=== PATIENT | female | born 1965 | race Caucasian/White ===

== ENCOUNTER 2017-04-30 10:28 | Observation (INO) | payer BC ==
[~2017-04-30] VITALS: Ht 162.6 cm; Wt 63.5 kg
[2017-04-30] VITALS (21 sets, daily range): BP systolic 97–117; BP diastolic 55–79; PULSE 60–69; RESP 11–21; Ht 162.6 cm; Wt 63.5 kg
[~2017-04-30 10:28] MED LIST: HYDR200T5 PO; NAPR-688 PO; OMEP40CA6 PO; RANI150T9 PO
[2017-04-30] MEDS ORDERED: FAMO40TA52 PO (10:58)
[2017-04-30] MEDS ORDERED: MEPERIDINE 100 MG INJ ONE (12:47)
[2017-04-30] MEDS ORDERED: CIPROFLOXACIN 400MG/D5W 200 ML IVPB ONE (13:00)
[2017-04-30] MEDS ORDERED: metroNIDAZOLE 500 MG/NS (PMX) 100 ML IVPB ONE ×2 (13:00→14:01)
[2017-04-30] MEDS ORDERED: SOD CHLORIDE 0.9% 1,000 ML IV SCH (13:00)
[2017-04-30] MEDS ORDERED: BUPIVACAINE 0.25% (MPF) 30 ML INJ ONE (13:44)
[2017-04-30] MEDS ORDERED: GLYCOPYRROLATE 0.4 MG INJ ONE ×2 (13:59→15:26)
[2017-04-30] MEDS ORDERED: SUCCINYLCHOLINE CHLORIDE 100 MG/5 ML SYG IV ONE (13:59)
[2017-04-30] MEDS ORDERED: NEOSTIGMINE 3 MG/3 ML SYRINGE ONE (13:59)
[2017-04-30] MEDS ORDERED: PROPOFOL 20 ML ONE (13:59)
[2017-04-30] MEDS ORDERED: ROCURONIUM 50 MG INJ ONE ×2 (13:59→15:25)
[2017-04-30] MEDS ORDERED: LIDOCAINE 2% (SDV) 5 ML INJ ONE (13:59)
[2017-04-30] MEDS ORDERED: MEPERIDINE 25 MG INJ IV PRN (14:00)
[2017-04-30] MEDS ORDERED: EPHEDrine SULFATE 50 MG/5 ML SYG IV PRN (14:00)
[2017-04-30] MEDS ORDERED: FENTAnyl 50 MCG/ML VIAL IV PRN ×2 (14:00)
[2017-04-30] MEDS ORDERED: MIDAZOLAM 1 MG/ML 2 ML INJ IV PRN (14:00)
[2017-04-30] MEDS ORDERED: METOCLOPRAMIDE 10 MG INJ IV PRN (14:00)
[2017-04-30] MEDS ORDERED: OXYCODONE/ACETAMINOPHEN (5/325) TAB PO PRN ×2 (14:00)
[2017-04-30] MEDS ORDERED: DIPHENHYDRAMINE 50 MG INJ IV PRN (14:00)
[2017-04-30] MEDS ORDERED: HYDROmorphONE (0.2 MG/ML) 10ML SYG IV PRN ×3 (14:00)
[2017-04-30] MEDS ORDERED: LABETALOL HCL 20MG INJ IV PRN (14:00)
[2017-04-30] MEDS ORDERED: hydrALAzine 20 MG INJ IV PRN (14:00)
[2017-04-30] MEDS ORDERED: ONDANSETRON 4 MG INJ IV PRN (14:00)
[2017-04-30] MEDS ORDERED: CIPROFLOXACIN 400MG/D5W 200 ML ONE (14:01)
[2017-04-30] MEDS ORDERED: METOCLOPRAMIDE 10 MG INJ ONE (15:26)
[2017-04-30] MEDS ORDERED: ONDANSETRON 4 MG INJ ONE (15:26)
[2017-04-30] MEDS ORDERED: SUGAMMADEX SODIUM 200 MG/2 ML VIAL IV ONE (15:28)
--- NOTE | 2017-04-30 15:35 | SIPON ---
Date/Time of Note Date/Time of Note DATE: 04/30/17 TIME: 15:34 Operative Report Preoperative Diagnosis malfunctioning lap band Postoperative Diagnosis same Operation/Procedure Performed 1. laparoscopic removal of lap band 2. abdominal port removal 3. capsulectomy of port capsule Surgeon see signature line research lab assistant none Anesthesia: general Estimated blood loss: 0 - 10 ml's Transfusion Required none Specimen lap band, abdominal port, capsule attached to port Grafts/Implants none Complications none Andreina GALLARDO Apr 30, 2017 15:35
[2017-04-30] MEDS: FENTAnyl 50 MCG/ML VIAL IV PRN ×2 (15:59→16:16)
[2017-04-30] MEDS ORDERED: morphine 2 MG INJ IV PRN (16:00)
[2017-04-30] MEDS ORDERED: HYDROCODONE/APAP (5/325) TAB PO PRN (16:00)
[2017-04-30] MEDS: SOD CHLORIDE 0.9% 1,000 ML IV SCH (18:08)
[2017-04-30 18:20] LABS: BASOPHILS % 0.3 % (0.0-2.0); EOSINOPHILS % 0.1 % (0.0-7.0); HEMATOCRIT 36.4 % (37.0-47.0); HEMOGLOBIN 11.9 g/dl (12.0-16.0); LYMPHOCYTES # 1.6 10^3/ul (0.8-2.9); MEAN CORPUSCULAR HEMOGLOBIN 29.8 pg (29.0-33.0); MEAN CORPUSCULAR HGB CONC 32.7 g/dl (32.0-37.0); MEAN CORPUSCULAR VOLUME 91.2 fl (82.0-101.0); MEAN PLATELET VOLUME 10.8 fl (7.4-10.4); MONOCYTE # 0.7 10^3/ul (0.3-0.9); NEUTROPHIL # 12.2 10^3/ul (1.6-7.5); NEUTROPHILS % 83.1 % (39.0-77.0); PLATELET COUNT 215 10^3/UL (140-415); RED BLOOD COUNT 3.99 10^6/ul (4.20-5.40); RED CELL DISTRIBUTION WIDTH 12.3 % (11.5-14.5); WHITE BLOOD COUNT 14.7 10^3/ul (4.8-10.8)
[2017-04-30 18:42] LABS: ALBUMIN 3.4 g/dl (3.3-4.9); ALBUMIN/GLOBULIN RATIO 1.17; BILIRUBIN,INDIRECT 0.2 mg/dl (0-1.1); BILIRUBIN,TOTAL 0.2 mg/dl (0.2-1.3); CREATININE 0.86 mg/dl (0.44-1.00); POTASSIUM 4.3 mmol/L (3.5-5.1); TOTAL PROTEIN 6.3 g/dl (6.1-8.1)
[2017-04-30] MEDS: CLINDAMYCIN 600 MG/D5W (PMX) 50 ML IVPB SCH (18:49)
[2017-04-30 18:50] LABS: CALCIUM 7.9 mg/dl (8.4-10.2)
[2017-05-01] MEDS: CLINDAMYCIN 600 MG/D5W (PMX) 50 ML IVPB SCH ×3 (00:55→12:11)
[2017-05-01] MEDS: ONDANSETRON 4 MG INJ IV PRN ×3 (01:01→12:57)
[2017-05-01] MEDS: SOD CHLORIDE 0.9% 1,000 ML IV SCH ×2 (01:32→06:00)
[2017-05-01 01:57] VITALS: BP 113/69; RESP 18
--- NOTE | 2017-05-01 02:29 | OPR ---
DATE OF OPERATION: 04/30/2017 INDICATION: This is a 52-year-old female who has a malfunctioning lap band which was placed in an [facility] country. She is having problems with the lap band function and requests surgical removal of the lap band. Risks, alternatives, benefits and personnel were discussed with the patient. Potenti al complications including, but not limited to, bleeding, infection, gastric leak, need for partial gastrectomy and need for reoperation were discussed with the patient. They expressed understanding and consented to the operation. PREOPERATIVE DIAGNOSIS: Malfunctioning lap band. POSTOPERATIVE DIAGNOSIS: Malfunctioning lap band. OPERATION PERFORMED: 1. Laparoscopic band removal. 2. Removal of abdominal ports. 3. Capsulectomy. 4. Therapeutic injection of local anesthesia subcutaneously. 5. Laparoscopic lysis of adhesions. SURGEON: Armando Ryan MD SPECIMEN: Lap band abdominal port capsule. COMPLICATIONS: None. ANESTHESIA: General. ESTIMATED BLOOD LOSS: 15 mL. DESCRIPTION OF PROCEDURE: The patient was taken to the OR and prepped and draped in the usual steri le fashion. Surgical timeout was performed. IV antibiotics were given. Left upper periumbilical t ransverse incision was made with a 15 blade. Using a 12 mm optical trocar, optical entry was perfor med. Pneumoperitoneum was established. Right upper quadrant 5 mm optical trocar was placed under d irect visualization. Left upper quadrant 12 mm optical trocar was placed under direct visualization . Midepigastric 5 mm optical trocar was placed and then removed. Initial inspection showed adhesio ns to the lap band and lap band migration. A snake liver retractor was used through the midepigastr ic port site and the liver was retracted. Laparoscopic lysis of adhesions was performed extensively around the liver and around the port and lap band. The lap band was freely mobilized. Laparoscopi c scissors were used to divide the lap band and the 2 pieces were then retrieved through the port si te. There was good hemostasis of that area. The abdominal wall port was then removed by making a t ransverse incision over the port site. Dissection cautery was carried down to the port. The port a nd the capsule were then resected en bloc. The port, the lap band and all of its components were th en examined and complete excision was performed, and this was also sent to pathology for confirmatio n. The abdominal port was noted to have migrated almost into the abdomen and there was a large defe ct that was created. This was closed with a running 0 looped #1 PDS. The surgical site was hemosta tic. The ports were removed under direct visualization. Skin was closed using skin cori. Thera peutic subcutaneous Marcaine was injected throughout the incision sites. Dictated By: ARMANDO RYAN MD SB/NICOLE Conf#: [id number] DID#: [id number] CC: CAR BEE MD;*EndCC*
--- NOTE | 2017-05-01 04:09 | HP ---
DATE OF ADMISSION: 04/30/2017 HISTORY OF PRESENT ILLNESS: The patient is a 52-year-old female with past medical history positive for lupus, however, patient denies having any current medications that she is taking for that. Lia ent with also a history of GERD and status post lap band surgery, and patient currently was evaluate d for lap band malfunction, and patient was evaluated in surgical consultation by Dr. Ryan and was br ought to the hospital and underwent laparoscopic removal of lap band with abdominal port removal and capsulectomy of port capsule. Postoperatively, the patient experienced moderate pain and patient w ill be admitted for further management. PAST MEDICAL HISTORY: Per HPI. Positive for lupus and gastritis. PAST SURGICAL HISTORY: Patient is status post x2. Status post appendectomy, nose surgery , tummy tuck and breast implants, status post pilonidal cyst surgery and status post total abdominal hysterectomy. FAMILY HISTORY: Both parents with history of heart disease. SOCIAL HISTORY: The patient lives at home. The patient is , has 3 kids. The patient denie s any tobacco use, denies any alcohol use, denies any illicit drug use. ALLERGIES: PATIENT IS ALLERGIC TO: 1. PENICILLIN. 2. SULFONAMIDE ANTIBIOTICS. MEDICATIONS ON ADMISSION: Include Pepcid. REVIEW OF SYSTEMS: A 12-point review of systems is negative unless mentioned in the HPI. PHYSICAL ASSESSMENT: GENERAL: Well-developed, well-nourished female, currently lethargic, but easily arousable. VITAL SIGNS: Temperature 97.8, pulse is 60, blood pressure is 108/68, respiratory rate 14, oxygen s aturation 100% on 2 liters nasal cannula. HEENT: Head is atraumatic, normocephalic. Pupils equal, round, reactive to light and accommodation . Oral mucosa is pink and moist. NECK: Supple, no cervical lymphadenopathy, no thyromegaly. CHEST: Lungs clear bilaterally. There are no rhonchi, wheezes, rales noted. CARDIOVASCULAR: Normal S1, S2. No murmurs, gallops, clicks, rubs noted. ABDOMEN: Status post surgery with laparoscopic surgical incisions. EXTREMITIES: There is no edema, clubbing, cyanosis. Pulses equal bilaterally, 2+. SKIN: There is no rash, petechiae noted. NEUROLOGICAL: The patient is alert and oriented to name and situation and moves all extremities. N o focal deficits noted. LABORATORY DATA: Prior to surgery, CBC, white blood cells 7.5, hemoglobin 12.8, hematocrit 40.5, pl atelets 240. Complete metabolic panel, glucose 69, BUN is 12, creatinine 0.84, sodium 142, potassiu m 4.8, chloride 106, carbon dioxide 22, calcium is 9.2. Serum albumin 3.8. INR is 1.1, PT is 11.1, APTT is 31. ASSESSMENT AND PLAN: 1. Laparoscopic band malfunction, status post laparoscopic removal of lap band. We are going to co ntinue Tylenol and morphine p.r.n. for pain, and do Zofran p.r.n. for nausea. Continue IV fluids an d postoperative antibiotics. Advance diet per surgery. Check CBC and BMP tomorrow. 2. History of lupus. 3. History of gastroesophageal reflux disease. Continue Pepcid. 4. Sequential compression device for deep venous thrombosis prophylaxis. 5. Further recommendations based on clinical course. Plan of care discussed with Dr. Duvall. Dictated By: [address] TECHNICAL HEALTHCARE CONSULTANT for CAR DUVALL MD SR/NTS Conf#: [id number] DID#: [id number] CC: CAR DUVALL MD;*EndCC*
[2017-05-01 05:20] LABS: BASOPHILS % 0.3 % (0.0-2.0); EOSINOPHILS % 0.1 % (0.0-7.0); HEMATOCRIT 35.2 % (37.0-47.0); HEMOGLOBIN 11.2 g/dl (12.0-16.0); LYMPHOCYTES # 1.3 10^3/ul (0.8-2.9); MEAN CORPUSCULAR HEMOGLOBIN 28.5 pg (29.0-33.0); MEAN CORPUSCULAR HGB CONC 31.8 g/dl (32.0-37.0); MEAN CORPUSCULAR VOLUME 89.6 fl (82.0-101.0); MEAN PLATELET VOLUME 11.2 fl (7.4-10.4); MONOCYTE # 0.7 10^3/ul (0.3-0.9); MONOCYTES % 6.3 % (0.0-11.0); NEUTROPHIL # 9.3 10^3/ul (1.6-7.5); NEUTROPHILS % 81.8 % (39.0-77.0); PLATELET COUNT 199 10^3/UL (140-415); RED BLOOD COUNT 3.93 10^6/ul (4.20-5.40); RED CELL DISTRIBUTION WIDTH 12.5 % (11.5-14.5); WHITE BLOOD COUNT 11.4 10^3/ul (4.8-10.8)
[2017-05-01 05:54] LABS: ALBUMIN 3.4 g/dl (3.3-4.9); ALBUMIN/GLOBULIN RATIO 1.21; BILIRUBIN,INDIRECT 0.6 mg/dl (0-1.1); BILIRUBIN,TOTAL 0.6 mg/dl (0.2-1.3); CALCIUM 8.1 mg/dl (8.4-10.2); CREATININE 0.84 mg/dl (0.44-1.00); POTASSIUM 4.5 mmol/L (3.5-5.1); TOTAL PROTEIN 6.2 g/dl (6.1-8.1)
[2017-05-01 07:54] VITALS: BP 114/5; RESP 19
[2017-05-01] MEDS ORDERED: FAMOTIDINE 20 MG TAB PO SCH (09:00)
--- NOTE | 2017-05-01 12:06 | PN ---
Date/Time of Note Date/Time of Note DATE: 05/01/17 TIME: 12:05 Assessment/Plan VTE Prophylaxis VTE Prophylaxis Intervention: SCD's Lines/Catheters IV Catheter Type (from Nrs): Peripheral IV Urinary Cath still in place: Yes Reason Cath still needed: other (indicate) Assessment/Plan Chief Complaint/Hosp Course s/p lap band and abdominal port removal Problems: Assessment/Plan doing well tolerating clears ok to dc home Subjective 24 Hr Interval Summary Free Text/Dictation doing well, tolerated clears Exam/Review of Systems Vital Signs Vitals Vital Signs Date Time Temp Pulse Resp B/P Pulse Ox O2 Delivery O2 Flow Rate FiO2 05/01/17 10:36 Nasal Cannula 2.0 05/01/17 07:54 97.6 69 19 114/5 98 Intake and Output 04/30/17 04/30/17 05/01/17 15:00 23:00 07:00 Intake Total 1250 ml 1200 ml Output Total 170 ml 1300 ml Balance 1080 ml -100 ml Exam c/d/i Results Result Diagram: 05/01/17 0418 05/01/17 0418 Results 24 hrs Laboratory Tests Test 04/30/17 17:57 05/01/17 04:18 05/01/17 05:38 White Blood Count 14.7 H 11.4 #H Red Blood Count 3.99 L 3.93 L Hemoglobin 11.9 L 11.2 L Hematocrit 36.4 L 35.2 L Mean Corpuscular Volume 91.2 89.6 Mean Corpuscular Hemoglobin 29.8 28.5 L Mean Corpuscular Hemoglobin Concent 32.7 31.8 L Red Cell Distribution Width 12.3 12.5 Platelet Count 215 199 Mean Platelet Volume 10.8 H 11.2 H Neutrophils % 83.1 H 81.8 H Lymphocytes % 11.0 L 11.0 L Monocytes % 5.0 6.3 Eosinophils % 0.1 0.1 Basophils % 0.3 0.3 Nucleated Red Blood Cells % 0.0 0.0 Neutrophils # 12.2 H 9.3 H Lymphocytes # 1.6 1.3 Monocytes # 0.7 0.7 Eosinophils # 0.0 0.0 Basophils # 0.0 0.0 Nucleated Red Blood Cells # 0.0 0.0 Sodium Level 139 138 Potassium Level 4.3 4.5 Chloride Level 110 108 Carbon Dioxide Level 23 25 Anion Gap 10 10 Blood Urea Nitrogen 13 10 Creatinine 0.86 0.84 Glucose Level 110 114 Calcium Level 7.9 L 8.1 L Total Bilirubin 0.2 0.6 Direct Bilirubin 0.00 0.00 Indirect Bilirubin 0.2 0.6 Aspartate Amino Transf (AST/SGOT) 99 H 89 H Alanine Aminotransferase (ALT/SGPT) 83 H 73 H Alkaline Phosphatase 52 48 Total Protein 6.3 6.2 Albumin 3.4 3.4 Globulin 2.90 2.80 Albumin/Globulin Ratio 1.17 1.21 Lab Scanned Report LAB Medications Medications Current Medications Morphine Sulfate (morphine) 2 mg Q2H PRN IV PAIN LEVEL 6-10; Start 04/30/17 at 16:00 Acetaminophen/ Hydrocodone Bitart 1 tab 1 tab Q6H PRN PO PAIN LEVEL 6-10 Last administered on 05/01/17 02:19; Admin Dose 1 TAB; Start 04/30/17 at 16:00 Sodium Chloride 1,000 ml @ 100 mls/hr Q10H IV Last administered on 05/01/17 06:00; Admin Dose 100 MLS/HR; Start 04/30/17 at 15:32 Clindamycin HCl/ Dextrose (Cleocin 600 Mg/ D5W (Pmx)) 50 ml @ 50 mls/hr Q6 IVPB Last administered on 05/01/17 06:01; Admin Dose 50 MLS/HR; Start 04/30/17 at 18:00; Stop 05/01/17 at 17:59 Famotidine (Pepcid) 40 mg DAILY PO Last administered on 05/01/17 10:30; Admin Dose 40 MG; Start 05/01/17 at 09:00 Ondansetron HCl (Zofran Inj) 4 mg Q4H PRN IV NAUSEA AND/OR VOMITING Last administered on 05/01/17 06:00; Admin Dose 4 MG; Start 04/30/17 at 17:00 Andreina GALLARDO May 01, 2017 12:06
[2017-05-01] MEDS ORDERED: HYDR-3498 PO (17:15)
[2017-05-01] MEDS ORDERED: ONDA4TAB8 PO (17:15)
[2017-05-01] MEDS ORDERED: FAMO-96 PO (17:15)
[2017-05-01] MEDS ORDERED: DOCU-144 PO (17:15)
[2017-05-01] MEDS ORDERED: HYDR-906 PO (17:15)
--- NOTE | 2017-05-01 17:16 | PDOCDIS ---
Discharge Instructions CONDITION Patient Condition: Stable HOME CARE INSTRUCTIONS: Diet Instructions: ACTIVITY: Activity Restrictions: Rest between Activity Avoid heavy lifting Do not Drive Do not operate Machinery Do not operate Power Tool Avoid Heavy Housework Bathing Restrictions: Sponge Bath FOLLOW UP/APPOINTMENTS Follow-up Plan FU with Primary MD X 1 week FO with surgery as recommended. Call 911 or go to the nearest hospital if symptoms get worse. KERRY AMANDA May 01, 2017 17:16
--- NOTE | 2017-05-01 17:16 | DS ---
Date/Time of Note Date/Time of Note DATE: 05/01/17 TIME: 17:16 Discharge Summary Admission/Discharge Info Admit Date/Time Apr 30, 2017 at 15:59 Discharge Date/Time Discharge Diagnosis - Laparoscopic band malfunction - Status post laparoscopic removal of lap band. - History of lupus. -. History of gastroesophageal reflux disease. Continue Pepcid. - Sequential compression device for deep venous thrombosis prophylaxis. Patient Condition: Stable Hospital Course The patient is a 52-year-old female with past medical history of positive for lupus, GERD and status post lap band surgeryGERD and status post lap band surgery. Patient has c/o her lap band malfunction, and patient was admitted sp laparoscopic removal of lap band with abdominal port removal and capsulectomy of port capsule. Postoperatively, the patient experienced moderate pain and was admitted for further management under Dr Duvall. Patietn got stable, surgery cleared to discharge. All discharge/FU instructions given, well understood by patient. discussed with Dr. Duvall. Home Meds Active Scripts Ondansetron Hcl* (Zofran*) 4 Mg Tablet, 4 MG PO Q6H for NAUSEA AND/OR VOMITING, #20 TAB Prov:KERRY AMANDA 05/01/17 Hydrocodone/Acetaminophen (Douglas 5-325 Tablet) 1 Each Tablet, 1 EACH PO Q6 Y for PAIN LEVEL 6-10 for 14 Days, TAB Prov:KERRY AMANDA 05/01/17 Famotidine* (Pepcid*) 20 Mg Tablet, 20 MG PO BID for 10 Days, TAB Prov:KERRY AMANDA 05/01/17 Docusate Sodium* (Colace*) 100 Mg Capsule, 100 MG PO DAILY, #30 CAP Prov:KERRY AMANDA 05/01/17 Hydrocodone Bit-Acetaminophen (Hydrocodone Bit-APAP) 5-325MG Tablet, 1 TAB PO Q6H Y for PAIN LEVEL 6-10, #14 TAB Prov:KERRY AMANDA 05/01/17 Reported Medications Famotidine* (Famotidine*) 40 Mg Tablet, 40 MG PO HS, #30 TAB 04/30/17 Primary Care Provider Balbir Whelan MD Time spent on discharge: < 30 minutes Pending Labs Laboratory Tests Test 04/30/17 17:57 05/01/17 04:18 10/5/17 05:38 White Blood Count 14.710^3/ul (4.8-10.8) 11.410^3/ul (4.8-10.8) Red Blood Count 3.9910^6/ul (4.20-5.40) 3.9310^6/ul (4.20-5.40) Hemoglobin 11.9g/dl (12.0-16.0) 11.2g/dl (12.0-16.0) Hematocrit 36.4% (37.0-47.0) 35.2% (37.0-47.0) Mean Corpuscular Volume 91.2fl (82.0-101.0) 89.6fl (82.0-101.0) Mean Corpuscular Hemoglobin 29.8pg (29.0-33.0) 28.5pg (29.0-33.0) Mean Corpuscular Hemoglobin Concent 32.7g/dl (32.0-37.0) 31.8g/dl (32.0-37.0) Red Cell Distribution Width 12.3% (11.5-14.5) 12.5% (11.5-14.5) Platelet Count 06563^3/UL (140-415) 61491^3/UL (140-415) Mean Platelet Volume 10.8fl (7.4-10.4) 11.2fl (7.4-10.4) Neutrophils % 83.1% (39.0-77.0) 81.8% (39.0-77.0) Lymphocytes % 11.0% (15.0-51.0) 11.0% (15.0-51.0) Monocytes % 5.0% (0.0-11.0) 6.3% (0.0-11.0) Eosinophils % 0.1% (0.0-7.0) 0.1% (0.0-7.0) Basophils % 0.3% (0.0-2.0) 0.3% (0.0-2.0) Nucleated Red Blood Cells % 0.0/100WBC (0.0-0.0) 0.0/100WBC (0.0-0.0) Neutrophils # 12.210^3/ul (1.6-7.5) 9.310^3/ul (1.6-7.5) Lymphocytes # 1.610^3/ul (0.8-2.9) 1.310^3/ul (0.8-2.9) Monocytes # 0.710^3/ul (0.3-0.9) 0.710^3/ul (0.3-0.9) Eosinophils # 0.010^3/ul (0.0-0.5) 0.010^3/ul (0.0-0.5) Basophils # 0.010^3/ul (0.0-0.1) 0.010^3/ul (0.0-0.1) Nucleated Red Blood Cells # 0.010^3/ul (0.0-0.0) 0.010^3/ul (0.0-0.0) Sodium Level 139mmol/L (135-144) 138mmol/L (135-144) Potassium Level 4.3mmol/L (3.5-5.1) 4.5mmol/L (3.5-5.1) Chloride Level 110mmol/L (97-110) 108mmol/L (97-110) Carbon Dioxide Level 23mmol/L (21-31) 25mmol/L (21-31) Anion Gap 10 (8-16) 10 (8-16) Blood Urea Nitrogen 13mg/dl (7-20) 10mg/dl (7-20) Creatinine 0.86mg/dl (0.44-1.00) 0.84mg/dl (0.44-1.00) Glucose Level 110mg/dl (70-220) 114mg/dl (70-220) Calcium Level 7.9mg/dl (8.4-10.2) 8.1mg/dl (8.4-10.2) Total Bilirubin 0.2mg/dl (0.2-1.3) 0.6mg/dl (0.2-1.3) Direct Bilirubin 0.00mg/dl (0.00-0.20) 0.00mg/dl (0.00-0.20) Indirect Bilirubin 0.2mg/dl (0-1.1) 0.6mg/dl (0-1.1) Aspartate Amino Transf (AST/SGOT) 99IU/L (15-46) 89IU/L (15-46) Alanine Aminotransferase (ALT/SGPT) 83IU/L (13-69) 73IU/L (13-69) Alkaline Phosphatase 52IU/L (42-121) 48IU/L (42-121) Total Protein 6.3g/dl (6.1-8.1) 6.2g/dl (6.1-8.1) Albumin 3.4g/dl (3.3-4.9) 3.4g/dl (3.3-4.9) Globulin 2.90g/dl (1.3-3.2) 2.80g/dl (1.3-3.2) Albumin/Globulin Ratio 1.17 1.21 Lab Scanned Report [id number] KERRY AMANDA May 01, 2017 17:16
== END 2017-05-01 19:05 | disposition home or self-care (01) ==
LOC: SDS 10:28 → EDSTATUS 14:00 → MS1 15:59 → SDS 15:59 → MS1 17:15
PROVIDERS: ADMIT Internal Medicine; ATTEND Surgery
DX: T85.518A Breakdown (mechanical) of other gastrointestinal prosthetic devices, implants and grafts, initial encounter (principal); K95.09 Other complications of gastric band procedure; K21.9 Gastro-esophageal reflux disease without esophagitis; M32.9 Systemic lupus erythematosus, unspecified; F32.9 Major depressive disorder, single episode, unspecified
CPT/HCPCS: 43774; 80053; 85025; 87086; 88300; G0378; J0744; J1170; J2175; J2405; J2765; J3010; J7030; J7999; 88302; J2710

== ENCOUNTER 2018-10-19 05:43 | Day surgery (SDC) | payer BC, OTHER ==
[~2018-10-19] VITALS: Ht 160 cm; Wt 73.3 kg
[~2018-10-19 05:43] MED LIST changes: +DOCU-144 PO; +FAMO-96 PO; +FAMO40TA5 PO; +HYDR-3601 PO; +HYDR-4011 PO; -HYDR200T5 PO; -NAPR-688 PO; -OMEP40CA6 PO; +ONDA4TAB8 PO; -RANI150T9 PO
[2018-10-19 07:12] VITALS: Ht 160 cm; Wt 73.3 kg
[2018-10-19 07:28] VITALS: BP 131/72; PULSE 71; RESP 16
[2018-10-19] MEDS ORDERED: AZELASTINE (07:30)
[2018-10-19] MEDS ORDERED: BREO ELLIPTA INHALER (07:30)
[2018-10-19] MEDS ORDERED: HYDROXYCHLOROQUINE (07:30)
[2018-10-19] MEDS ORDERED: ZYRTEC (07:31)
[2018-10-19] MEDS ORDERED: MIDAZOLAM 1 MG/ML 2 ML INJ ONE ×3 (08:59→09:00)
[2018-10-19] MEDS ORDERED: FENTAnyl 50 MCG/ML VIAL ONE (09:00)
[2018-10-19 09:22] VITALS: BP 117/64; PULSE 74; RESP 20
--- NOTE | 2018-10-22 09:16 | CONS ---
DATE OF ADMISSION: 10/19/2018 DATE OF CONSULTATION: PATIENT NAME: ROMY HOLLIS Dear Dr. Whelan: I thank you very much for this kind referral. HISTORY OF PRESENT ILLNESS: Ms. Romy Thompson is a 53-year-old female patient who has bee n referred to me for further evaluation of abdominal pain, chronic heartburn, change in the bowel hab it, and positive occult blood in the stool. The patient states she has got pain both in the upper pa rt as well as lower part of the abdomen. She also complains of chronic heartburn. She has been taki ng omeprazole and Zantac without help. The patient is status post Lap-Band removal. Not on nonstero idal anti-inflammatory agents. Appetite is good and no weight loss. No history of gallstones or eleazar er disease. No past history of inflammatory bowel disease or colon neoplasm. She never had screenin g colonoscopy. Not a hypertensive or diabetic. No heart disease, lung problem or kidney disease. S he has history of lupus. SOCIAL HISTORY: Nonsmoker. No alcohol abuse. FAMILY HISTORY: No family history of gastrointestinal tract neoplasm. ALLERGIES: 1. PENICILLIN. 2. SULFA. PHYSICAL EXAMINATION: VITAL SIGNS: She is 5 feet 3 inches tall and weighs 160 pounds. HEART: Normal heart sounds. LUNGS: Clear. ABDOMEN: Soft. No masses. Normal bowel sounds. NEUROLOGICAL: Normal neurological exam. IMPRESSION: 1. Upper abdominal pain and chronic heartburn, not responding to therapy with omeprazole and Zantac. 2. Lower abdominal pain. 3. Change in the bowel habit. 4. Positive occult blood in the stool. 5. The patient never had screening colonoscopy. 6. Status post Lap-Band removal. 7. History of lupus. 8. ALLERGY TO PENICILLIN AND SULFA. MEDICATIONS: 1. Omeprazole. 2. Zantac. 3. Hydroxychloroquine. PLAN: 1. Bentyl 10 mg p.o. t.i.d. p.r.n. for pain. 2. Abdominal ultrasound for further evaluation of abdominal pain. 3. Endoscopy and colonoscopy for further evaluation. The procedures and possible complications are well explained to the patient. She understands and con sents to the procedures. I thank you once again. With warmest personal regards, Dictated By: BRANDY RENTERIA/NICOLE Conf#: [id number] [facility]#: [id number] CC: Dr. Whelan;*End*
== END 2018-10-19 10:32 | disposition home or self-care (01) ==
LOC: GIL 05:43
PROVIDERS: ATTEND Internal Medicine Gastroenterology
DX: K64.8 Other hemorrhoids (principal); K64.4 Residual hemorrhoidal skin tags; H44.9 Unspecified disorder of globe; K21.0 Gastro-esophageal reflux disease with esophagitis
CPT/HCPCS: 43239; 45378; 88305; 88312; J2250; J3010